=== PATIENT | male | born 1995 | race Caucasian/White ===

== ENCOUNTER 2018-03-21 09:09 | Emergency (ER) | payer OTHER, SELFPAY ==
[2018-03-21 09:15] VITALS: BP 123/73; PULSE 89; RESP 15; TEMP 36.4; O2SAT 99; BMI 20.5
[2018-03-21 11:56] VITALS: BP 130/70; PULSE 73; RESP 16; O2SAT 98
--- NOTE | 2018-03-21 11:58 | ED_ITS ---
HPI - Back Pain/Injury General Chief Complaint: Back Pain/Injury Stated Complaint: PULLED SOMETHING IN BACK Time Seen by Provider: 03/21/18 09:25 Source: patient Mode of arrival: ambulatory Limitations: no limitations History of Present Illness HPI Narrative: 22-year-old male with history of smoking presents alone with a work related back injury. He does have an existing history of back pain but this morning was listing heavy object and when he began to slip he attempted to stabilize himself and then felt significant pain in his lumbar region. He denies any radiation of the pain, has no numbness or tingling is and denies any change in bowel or bladder control. He has no foot drop. He denies any direct trauma to his back. MD Complaint: back pain and back injury Onset (ago): hour(s) Duration: constant Similar Symptoms Previously: Yes Location: lumbar spine Severity: moderate Quality: burning, sharp and aching Radiation: none Relieving factors: sitting upright Exacerbating factors: movement Context: while lifting and turning/twisting Associated symptoms: denies other symptoms Related Data Previous Rx's Medication Instructions Recorded cyclobenzaprine 10 mg PO TID PRN #14 tab 03/21/18 hydrocodone-acetaminophen 1 tab PO Q4-6H PRN #10 tab 03/21/18 ketorolac 10 mg PO Q6H PRN #14 tab 03/21/18 Allergies Allergy/AdvReac Type Severity Reaction Status Date / Time No Known Drug Allergies Allergy Verified 03/21/18 09:15 Review of Systems Constitutional Denies chills, Denies fever(s), Denies lethargy and Denies weakness Eyes Denies change in vision, Denies eye discharge, Denies irritation and Denies loss of vision ENT Ears, Nose, Mouth, and Throat: Denies change in voice, Denies neck pain and Denies sore throat Cardiovascular Denies chest pain, Denies irregular heart rhythm, Denies lightheadedness, Denies palpitations, Denies dyspnea, Denies dyspnea on exertion and Denies orthopnea Respiratory Denies cough, Denies dyspnea, Denies dyspnea on exertion and Denies wheezing Gastrointestinal Gastrointestinal: Denies abdominal pain, Denies change in bowel habits, Denies diarrhea, Denies nausea and Denies vomiting Genitourinary Denies hematuria, Denies flank pain, Denies urinary incontinence and Denies urinary urgency Musculoskeletal Reports back pain and Denies neck pain Integumentary/Breasts Denies pruritus, Denies erythema, Denies rash and Denies wounds Neurologic Denies confusion, Denies loss of vision and Denies weakness Psychiatric Denies anxiety, Denies confusion, Denies depression, Denies homicidal ideation and Denies suicidal ideation Endocrine Denies palpitations Hematologic/Lymphatic Denies easy bruising Allergic/Immunologic Denies wheezing PFSH Social History Smoking Status: Current every day smoker Social History Smoking Status: Current every day smoker Exam Narrative Exam Narrative: GEN: AOx3 and in mild distress EYES: Pupils are equal, round, and reactive to light and accommodation. Extraoc cular muscles are intact bilaterally. There is no subconjunctival hemorrhage or exudate. CHEST: Lungs are clear to auscultation bilaterally and free of wheezes, rales, or rhonchi. Heart rate is regular rhythm, there are no murmurs, clicks, rubs, or gallops. There is no chest wall tenderness. ABD: Abdomen is soft and nontender. There is no guarding or rebound. Bowel sounds are normal in all 4 quadrants. There is no mass or organomegaly. EXT: Full painless ROM of all extremities with no loss of sensation or strength. SKIN: Warm, pink, and dry. No erythema or rash BACK: clam shucking machine tender but free of any obvious external abnormalities. Patient exam notes decreased range of motion and muscle spasm, but no CVA tenderness, or vertebral point tenderness. There are no symptoms of cauda equina such as saddle anesthesia, and decreased reflexes, decreased sensation or strength. Initial Vital Signs Initial Vital Signs: Vital Signs Temperature 97.5 F L 03/21/18 09:15 Pulse Rate 89 03/21/18 09:15 Respiratory Rate 15 03/21/18 09:15 Blood Pressure 123/73 03/21/18 09:15 Pulse Oximetry 99 03/21/18 09:15 Course Vital Signs - 8 hr 03/21/18 09:15 03/21/18 11:56 Temperature 97.5 F L Pulse Rate 89 73 Respiratory Rate 15 16 Blood Pressure 123/73 130/70 Pulse Oximetry 99 98 MDM - Back Pain/Injury MDM Narrative Medical decision making narrative: Multiple etiologies of back pain considered including; Epidural abscess, cauda equina, mass occupying lesion, and other considered but thought less likely considering nature of injury, physical exam and other description of history Discharge Plan Departure Patient Disposition: Home Clinical Impression: Strain of lumbar region Qualifiers: Encounter type: initial encounter Qualified Code(s): S39.012A - Strain of muscle, fascia and tendon of lower back, initial encounter Discharge Date/Time: 03/21/18 11:56 Interventions: ED Discharge Assessment Last Done: 03/21/18 11:56 Instructions: DI for Back Spasm, DI for Back Strain or Sprain Activity Restrictions/Additional Instructions: *You have been diagnosed with [ acute lumbar strain ] *What to do: *Take medications as directed *Follow up with your primary care provider in 2-3 days, call for an appointment. Let them know you were seen in the Emergency Department and that we ask that you be seen in follow up *Return to ER if you should have any new, worsening or concerning symptoms You have been prescribed narcotic medications. While on these medications you cannot drive or operate heavy machinery. Additionally you cannot sign legal documents or perform any duties such as this. Many people get constipated on narcotic medications so it would be advisable to discuss stool softeners with the pharmacist when you picking tech your prescription. Please understand that we cannot provide further refills of narcotics or controlled substances through the ED and your pain management will need to be t hrough your Primary Care Provider Prescriptions: New cyclobenzaprine 10 mg tablet 10 mg PO TID PRN (Reason: muscle spasm) Qty: 14 RF: 0 hydrocodone-acetaminophen 5-325 mg tablet 1 tab PO Q4-6H PRN (Reason: pain) Qty: 10 RF: 0 ketorolac 10 mg tablet 10 mg PO Q6H PRN (Reason: pain) Qty: 14 RF: 0
== END 2018-03-21 11:56 | disposition home or self-care (01) ==
PROVIDERS: Emergency Provider Emergency Medicine
DX: S39.012A Strain of muscle, fascia and tendon of lower back, initial encounter (principal); X50.0XXA Overexertion from strenuous movement or load, initial encounter
CPT/HCPCS: 99282

== ENCOUNTER 2018-12-15 09:15 | Emergency (ER) | payer SELFPAY ==
[2018-12-15 09:31] VITALS: BP 119/71; PULSE 69; RESP 18; TEMP 36.6; O2SAT 100
[2018-12-15] MEDS: PROPARACAINE 0.5% OPHTH SOL 1 DROPS EYE-RIGHT (09:42)
--- NOTE | 2018-12-15 10:03 | ED.EYEPROB ---
HPI - Eye Problem General Chief complaint: Eye Problems Stated complaint: Something in Right eye Time Seen by Provider: 12/15/18 09:55 Source: patient Mode of arrival: Family Vehicle Limitations: no limitations History of Present Illness HPI Narrative: Patient is a 23-year-old male presents with right eye pain. He states that yesterday he was working with wood in cutting things. He feels like he got anything in his eye however later he was blinking felt like something was on his eyelashes and went into his eye. He has been rubbing it all night is quite irritated now. Does not wear contacts no change in. chief complaint: eye pain and eye redness Onset (ago): hour(s) Onset description: sudden Duration: constant Location: right eye Eye Symptoms: burning, redness, pain, foreign body sensation and photophobia Place: home Related Data Previous Rx's Medication Instructions Recorded cyclobenzaprine 10 mg PO TID PRN #14 tab 03/21/18 hydrocodone-acetaminophen 1 tab PO Q4-6H PRN #10 tab 03/21/18 ketorolac 10 mg PO Q6H PRN #14 tab 03/21/18 polymyxin B sulf-trimethoprim 2 drop EYE-RIGHT Q4HRWA 7 Days #10 12/15/18 [Polytrim] ml Allergies Allergy/AdvReac Type Severity Reaction Status Date / Time No Known Drug Allergies Allergy Verified 03/21/18 09:15 Review of Systems Review of Systems Narrative: GENERAL: Denies chills,fever HEENT: See HPI RESPIRATORY: Denies dyspnea, cough, wheezing CARDIOVASCULAR: Denies chest pain, palpitations GASTROINTESTINAL: Denies nausea, vomiting MUSCULOSKELETAL: Denies extremity pain, injury SKIN: No rash, no laceration, no pruritus NEUROLOGIC: Denies weakness, dizziness, headache, numbness 8 point review of systems is negative except for those stated above and HPI Patient History Medical History Patient denies medical problems (Acute) Social History Smoking Status: Current every day smoker Substance Use Type: marijuana Exam Initial Vital Signs Initial Vital Signs: Vital Signs Temperature 97.9 F 12/15/18 09:31 Pulse Rate 69 12/15/18 09:31 Respiratory Rate 18 12/15/18 09:31 Blood Pressure 119/71 12/15/18 09:31 Pulse Oximetry 100 12/15/18 09:31 GENERAL: Well-appearing, well-nourished and in no acute distress. EYES: EOMI, CHRISTINE RIGHT eye was treated with proparacaine, stained with fluorescein. Small circular pinpoint dye uptake noted in the center of the eye. No foreign body identified eye was flushed out with saline. CARDIOVASCULAR: peripheral pulses in tact, cap refill <2 sec RESPIRATORY: No respiratory distress, speaks in full sentences without difficulty EXTREMITIES: Normal range of motion, no clubbing or edema. Neurovascularly intact NEUROLOGICAL: Cranial nerves II through XII grossly intact. Normal gait and speech. SKIN: Warm, dry, no petechiae, no rashes or lesions. Course Orders Ordered: Discontinued Medications Proparacaine HCl (Parcaine 0.5% Ophth Tata) 1 drops EYE-RIGHT NOW ONE Stop: 12/15/18 09:40 Last Admin: 12/15/18 09:42 Dose: 1 drop Documented by: MAYLIN Vital Signs Vital signs: Vital Signs - 8 hr 12/15/18 09:31 Temperature 97.9 F Pulse Rate 69 Respiratory Rate 18 Blood Pressure 119/71 Pulse Oximetry 100 Discharge Plan Departure Patient Disposition: Home Clinical Impression: Abrasion, corneal Qualifiers: Encounter type: initial encounter Laterality: right Qualified Code(s): S05.01XA - Injury of conjunctiva and corneal abrasion without foreign body, right eye, initial encounter Discharge Date/Time: 12/15/18 10:10 Instructions: Corneal Abrasion Activity Restrictions/Additional Instructions: *You have been diagnosed with corneal abrasion *What to do: Expect to be sensitive to light the eye should heal itself in the next few days. *Continue to take medications as directed Polytrim Drops 1-2 drops every 4 hours while awake for 1 week Tylenol or Motrin as directed if needed for pain *Follow up with your primary care provider in 2-3 days *Return to ER if you should have increasing pain, decreasing vision, blurry vision or any new, worsening or concerning symptoms Prescriptions: New polymyxin B sulf-trimethoprim [Polytrim] 10,000 unit- 1 mg/mL drops 2 drop EYE-RIGHT Q4HRWA 7 Days Qty: 10 RF: 0 No Action cyclobenzaprine 10 mg tablet 10 mg PO TID PRN (Reason: muscle spasm) Qty: 14 RF: 0 hydrocodone-acetaminophen 5-325 mg tablet 1 tab PO Q4-6H PRN (Reason: pain) Qty: 10 RF: 0 ketorolac 10 mg tablet 10 mg PO Q6H PRN (Reason: pain) Qty: 14 RF: 0 Referrals: [facility] [Outside] Stand Alone Forms: Work Release Note
== END 2018-12-15 10:10 | disposition home or self-care (01) ==
PROVIDERS: Emergency Provider Emergency Medicine
DX: S05.01XA Injury of conjunctiva and corneal abrasion without foreign body, right eye, initial encounter (principal)
CPT/HCPCS: 99283